=== PATIENT | male | born 1975 | race Asian ===

== ENCOUNTER 2020-10-14 17:04 | Emergency (ER) | payer MEDICARE ==
[~2020-10-14] VITALS: Ht 160 cm; Wt 87.4 kg
[2020-10-14 17:13] VITALS: BP 132/85
--- NOTE | 2020-10-14 17:47 | NUR ---
REMOVABLE PROSTHODONTIST: PT TO ROOM FROM LOBBY
[2020-10-14] MEDS ORDERED: AMOXICILLIN 500 MG CAPSULE ONE (18:17)
[2020-10-14] MEDS ORDERED: OXYcodone/APAP 5/325MG TABLET ONE (18:18)
[2020-10-14] MEDS ORDERED: OXYcodone/APAP 5/325MG TABLET PO ONE (18:30)
[2020-10-14] MEDS ORDERED: AMOXICILLIN 500 MG CAPSULE PO ONE (18:30)
--- NOTE | 2020-10-14 18:37 | NUR ---
Patient given discharge instructions and Rx, they have confirmed that they understand the instructions. Patient ambulatory with steady gait.
== END 2020-10-14 19:14 | disposition home or self-care (01) ==
LOC: ED 18:29
DX: K02.9 Dental caries, unspecified (principal); I10 Essential (primary) hypertension; E11.9 Type 2 diabetes mellitus without complications; M19.90 Unspecified osteoarthritis, unspecified site; E78.00 Pure hypercholesterolemia, unspecified; F17.210 Nicotine dependence, cigarettes, uncomplicated
CPT/HCPCS: 99283; 99406

== ENCOUNTER 2020-10-16 18:36 | Emergency (ER) | payer MEDICARE ==
[~2020-10-16] VITALS: Ht 160 cm; Wt 90.0 kg
[2020-10-16] MEDS ORDERED: IBUPROFEN 600 MG TABLET PO ONE (20:00)
[2020-10-16] MEDS ORDERED: IBUPROFEN 600 MG TABLET ONE (20:08)
[2020-10-16 21:02] VITALS: BP 134/85
== END 2020-10-16 21:04 | disposition home or self-care (01) ==
LOC: ED 20:00
DX: M79.10 Myalgia, unspecified site (principal); Z20.822 Contact with and (suspected) exposure to COVID-19; R50.9 Fever, unspecified; R51.9 Headache, unspecified; E11.9 Type 2 diabetes mellitus without complications
CPT/HCPCS: 87635; 99283

== ENCOUNTER 2020-12-02 17:28 | Emergency (ER) | payer MEDICARE ==
[~2020-12-02] VITALS: Ht 160 cm; Wt 87.5 kg
--- NOTE | 2020-12-02 17:57 | NUR ---
PT AMBULATORY TO ROOM 31 W/ C/O L HAND SWELLING STARTED 3 DAYS AGO. PT STATES HX GOUT AND BELIEVES THIS IS A FLARE UP. NORMALLY IS GIVEN PREDNISONE FOR IT. PT RESTING ON [facility]. NADN. MONITORS APPLIED.
--- NOTE | 2020-12-02 18:55 | NUR ---
As secondary tasking RN, meds given to pt at this time and is only care provided by this RN. Pt awake, alert, in NAD, and off monitor.
[2020-12-02] MEDS ORDERED: INDOMETHACIN 50 MG CAPSULE PO ONE (19:00)
[2020-12-02 19:18] VITALS: BP 165/91
--- NOTE | 2020-12-02 19:18 | NUR ---
PT RESTING ON GURNEY. NADN. CASTRO.
== END 2020-12-02 20:17 | disposition home or self-care (01) ==
LOC: ED 19:57
DX: M13.842 Other specified arthritis, left hand (principal); M79.89 Other specified soft tissue disorders; I10 Essential (primary) hypertension; E11.9 Type 2 diabetes mellitus without complications; E78.00 Pure hypercholesterolemia, unspecified; F17.200 Nicotine dependence, unspecified, uncomplicated
CPT/HCPCS: 99283; J7512

== ENCOUNTER 2020-12-11 12:20 | Emergency (ER) | payer MEDICARE ==
[~2020-12-11] VITALS: Ht 165.1 cm; Wt 88.0 kg
--- NOTE | 2020-12-11 12:20 | NUR ---
TASK RN: MICAELA BISHOPSA W CO SUDDEN ONSET 'STABBING' 05/17 SUBSTERNAL CP. ONSET WHILE ACTIVE, IMPROVED WITH REST AND NITRO TO 10/17. PAIN RADIATES TO L SHOULDER AND IS ASSOCIATED WITH SOB. SIMILAR EPISODE YESTERDAY, LASTING 45 MINUTES PROVOKED BY ACTIVIY AND RESOLVED W REST. HX DC AND DM. REPORTS COMPLIANCE WITH LISINOPRIL, METFORMIN, AND ATORVASTATIN. 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 PAIN NOW 02/14. PT PWD, NAD NOTED. SPEAKING IN FULL SENTENCES AND APPEARS COMFORTABLE. IV ESTABLISHED, LABS DRAWN. EKG COMPLETED UPON ARRIVAL. BP/SPO2/ECG MONITORING IN PLACE. SINUS TACH ON MONITOR. REPORT TO PRIMARY RN SANAZ AND MARYJO
--- NOTE | 2020-12-11 12:53 | NUR ---
RECEVIED REPORT FROM LEROY. PT SITTING UPRIGHT ON TAYLORNayMILLICENT, BS. NAD. NO NEEDS AT THIS TIME. CALL LIGHT WITHIN REACH.
[2020-12-11 12:56] LABS: BASOPHILS % (AUTO) 1 % (0-1); EOSINOPHILS % (AUTO) 1 % (1-7); LYMPHOCYTES % (AUTO) 23 % (22-44); MEAN CORPUSCULAR HEMOGLOBIN 29.1 pg (27.5-34.5); MEAN CORPUSCULAR HGB CONC 33.4 g/dL (33.2-36.2); MEAN PLATELET VOLUME 7.8 fL (7.4-10.4); MONOCYTES % (AUTO) 5 % (2-9); NEUTROPHILS % (AUTO) 69 % (42-75); PLATELET COUNT 382 x10^3/uL (130-400); RED BLOOD COUNT 4.65 x10^6/uL (4.38-5.82); RED CELL DISTRIBUTION WIDTH 14.8 % (9.4-14.8)
[2020-12-11 13:00] LABS: MD NO
[2020-12-11 13:01] LABS: ALANINE AMINOTRANSFERASE 17 U/L (12-78); ALBUMIN 3.5 g/dL (3.4-5.0); ANION GAP 6 mmol/L (5-15); CALCIUM 8.7 mg/dL (8.5-10.1); CHLORIDE 105 mmol/L (98-107); CREATININE 1.21 mg/dL (0.7-1.3)
[2020-12-11 13:05] LABS: ALKALINE PHOSPHATASE 161 U/L (45-117); BILIRUBIN,TOTAL 0.3 mg/dL (0.2-1.0); TOTAL PROTEIN 8.1 g/dL (6.4-8.2); TROPONIN I < 0.015 ng/mL (0.000-0.045)
[2020-12-11] MEDS ORDERED: ATOR-2 PO (13:06)
[2020-12-11] MEDS ORDERED: METF500T17 PO (13:06)
[2020-12-11] MEDS ORDERED: INDO50CA15 PO (13:06)
[2020-12-11] MEDS ORDERED: LISI1TAB39 PO (13:06)
--- NOTE | 2020-12-11 14:31 | NUR ---
PT LAYING ON GURNEY WITH EYES CLOSED, RESPONDS APPROP TO STAFF, NAD, NO NEEDS AT THIS TIME- MEAL TRAY ORDERED PER ERP, FAMILY AT BS, CALL LIGHT WITHIN REACH.
--- NOTE | 2020-12-11 15:03 | NUR ---
MEAL TRAY GIVEN
--- NOTE | 2020-12-11 15:28 | NUR ---
PT SITTING UP EATING, RESPONDS APPROP TO STAFF, NAD, NO NEEDS AT THIS TIME, FAMILY AT BS, CALL LIGHT WITHIN REACH, AWAITING REPEAT TROP.
[2020-12-11 15:38] LABS: TROPONIN I < 0.015 ng/mL (0.000-0.045)
[2020-12-11 16:46] VITALS: BP 133/82
--- NOTE | 2020-12-11 16:48 | NUR ---
Patient given discharge instructions and they have confirmed that they understand the instructions. Patient ambulatory with steady gait.
== END 2020-12-11 16:49 | disposition home or self-care (01) ==
LOC: ED 13:00
DX: R07.2 Precordial pain (principal); R07.89 Other chest pain; I25.2 Old myocardial infarction; E11.9 Type 2 diabetes mellitus without complications; I10 Essential (primary) hypertension; M19.90 Unspecified osteoarthritis, unspecified site; E78.00 Pure hypercholesterolemia, unspecified
CPT/HCPCS: 36415; 71045; 80053; 84484; 85025; 93005; 99285

== ENCOUNTER 2021-01-16 11:36 | Emergency (ER) | payer MEDICARE ==
[~2021-01-16] VITALS: Ht 160 cm; Wt 86.5 kg
[~2021-01-16 11:36] MED LIST: ATOR-2 PO; INDO50CA15 PO; LISI1TAB39 PO; METF500T17 PO
--- NOTE | 2021-01-16 12:27 | NUR ---
PT STATES LT LQ ABD PAIN THAT RADIATES TO LT FLANK. PT IN AGGITATED, ANXIOUS AND RESTLESS IN BED. PT STATES DOES NOT CHECK SUGARS AT HOME. PT PLACED ON MONITORS. ERMD AT BEDSIDE FOR ASSESSMENT. WILL FOLLOW ORDERS.
[2021-01-16] MEDS ORDERED: ONDANSETRON 2MG/ML, 2ML ONE (12:50)
[2021-01-16] MEDS ORDERED: MORPHINE SULFATE 4 MG/ML, 1ML ONE (12:50)
[2021-01-16] MEDS ORDERED: KETOROLAC 30 MG/1 ML ONE (12:50)
[2021-01-16 12:59] LABS: BASOPHILS % (AUTO) 1 % (0-1); EOSINOPHILS % (AUTO) 1 % (1-7); LYMPHOCYTES % (AUTO) 15 % (22-44); MEAN CORPUSCULAR HEMOGLOBIN 29.6 pg (27.5-34.5); MEAN CORPUSCULAR HGB CONC 33.6 g/dL (33.2-36.2); MEAN PLATELET VOLUME 7.8 fL (7.4-10.4); MONOCYTES % (AUTO) 5 % (2-9); NEUTROPHILS % (AUTO) 78 % (42-75); PLATELET COUNT 333 x10^3/uL (130-400); RED BLOOD COUNT 4.43 x10^6/uL (4.38-5.82); RED CELL DISTRIBUTION WIDTH 14.5 % (9.4-14.8)
[2021-01-16] MEDS ORDERED: KETOROLAC 30 MG/1 ML IVPush ONE (13:00)
[2021-01-16] MEDS ORDERED: SODIUM CHLORIDE FLUSH 10ML SYR IVF ONE (13:00)
[2021-01-16] MEDS ORDERED: ONDANSETRON 2MG/ML, 2ML IVPush ONE (13:00)
[2021-01-16] MEDS ORDERED: MORPHINE SULFATE 4 MG/ML, 1ML IVPush PRN (13:00)
[2021-01-16] MEDS ORDERED: SODIUM CHLORIDE 0.9% 1,000ML IV ONE (13:00)
--- NOTE | 2021-01-16 13:01 | NUR ---
PT MEDICATED FOR PAIN PER ORDERS. PT REMAINS ON MONITORS, VSS. PT HAS URINAL AT BEDSIDE. WILL REASSESS.
[2021-01-16 13:06] LABS: ALANINE AMINOTRANSFERASE 16 U/L (12-78); ALBUMIN 3.7 g/dL (3.4-5.0); ANION GAP 7 mmol/L (5-15); CALCIUM 9.1 mg/dL (8.5-10.1); CHLORIDE 109 mmol/L (98-107)
[2021-01-16 13:09] LABS: ALKALINE PHOSPHATASE 142 U/L (45-117); BILIRUBIN,TOTAL 0.2 mg/dL (0.2-1.0); TOTAL PROTEIN 8.3 g/dL (6.4-8.2)
--- NOTE | 2021-01-16 13:20 | NUR ---
BREAK RN: OFF FLOOR TO CT
--- NOTE | 2021-01-16 13:46 | NUR ---
BREAK RN: PT RETURNED FROM CT AND LYING IN POSITION OF COMFORT, RIGHT SIDE, EYES CLOSED. STATES PAIN IMPROVED SINCE MEDICATED FOR SAME. URINE SAMPLE OBTAINED AND SENT TO LAB. AT BEDSIDE
[2021-01-16 13:57] LABS: MICROSCOPIC AUTO
--- NOTE | 2021-01-16 14:58 | NUR ---
PT OK FOR D/C, VERBALIZED UNDERSTANDING. PT HAS STEADY GAIT UPON D/C. STATES HIS PAIN IS "MUCH BETTER." PT HAS ALL OWN BELONGINGS UPON D/C.
[2021-01-16 15:01] VITALS: BP 147/89
[2021-05-26] MEDS ORDERED: INSU100I13 IM (22:41)
[2021-05-29] MEDS ORDERED: PRED20TA PO (12:25)
[2021-05-29] MEDS ORDERED: DICL50TA4 PO (12:25)
[2021-05-29] MEDS ORDERED: COLC0.6C3 PO (12:25)
== END 2021-01-16 15:03 | disposition home or self-care (01) ==
LOC: ED 14:31
DX: R10.32 Left lower quadrant pain (principal); R11.2 Nausea with vomiting, unspecified; I10 Essential (primary) hypertension; E11.9 Type 2 diabetes mellitus without complications; E78.5 Hyperlipidemia, unspecified; I25.2 Old myocardial infarction; M19.90 Unspecified osteoarthritis, unspecified site; F17.200 Nicotine dependence, unspecified, uncomplicated
CPT/HCPCS: 36415; 74176; 80053; 81001; 83690; 85025; 96361; 96374; 96375; 99284; J1885; J2270; J2405; J7030

== ENCOUNTER 2021-04-30 15:12 | Emergency (ER) | payer MEDICAID, MEDICARE ==
[~2021-04-30] VITALS: Ht 160 cm; Wt 86.5 kg
--- NOTE | 2021-04-30 15:21 | NUR ---
PT TO RAD FROM TRIAGE
--- NOTE | 2021-04-30 15:35 | NUR ---
PT TO ROOM FROM XRAY. PT HERE FOR C/O LEFT SHOULDER PAIN X3 DAYS AND NOW RADIATING PAIN TO LEFT UPPER CHEST, NECK, AND HEAD SINCE YESTERDAY. PT SENT FROM . PLACED ON ALL MONITORS, FALL PRECAUTIONS IN PLACE, CALL LIGHT WITHIN REACH.
[2021-04-30] MEDS ORDERED: LISI20TA21 PO (15:41)
--- NOTE | 2021-04-30 15:45 | NUR ---
LAB AT BEDSIDE.
[2021-04-30 15:57] LABS: BASOPHILS % (AUTO) 1 % (0-1); EOSINOPHILS % (AUTO) 1 % (1-7); LYMPHOCYTES % (AUTO) 20 % (22-44); MEAN CORPUSCULAR HEMOGLOBIN 29.8 pg (27.5-34.5); MEAN CORPUSCULAR HGB CONC 33.9 g/dL (33.2-36.2); MEAN PLATELET VOLUME 7.6 fL (7.4-10.4); MONOCYTES % (AUTO) 7 % (2-9); NEUTROPHILS % (AUTO) 71 % (42-75); PLATELET COUNT 345 x10^3/uL (130-400); RED BLOOD COUNT 4.17 x10^6/uL (4.38-5.82); RED CELL DISTRIBUTION WIDTH 14.3 % (9.4-14.8)
[2021-04-30] MEDS ORDERED: SODIUM CHLORIDE FLUSH 10ML SYR IVF ONE (16:00)
[2021-04-30] MEDS ORDERED: DEXAMETHASONE 4 MG/ML, 1ML IVPush ONE (16:00)
[2021-04-30 16:04] LABS: ALBUMIN 3.1 g/dL (3.4-5.0); ANION GAP 6 mmol/L (5-15); CALCIUM 8.6 mg/dL (8.5-10.1); CHLORIDE 103 mmol/L (98-107); CREATININE 1.57 mg/dL (0.7-1.3)
[2021-04-30] MEDS ORDERED: DEXAMETHASONE 4 MG/ML, 1ML ONE (16:05)
[2021-04-30 16:11] LABS: TROPONIN I < 0.015 ng/mL (0.000-0.045)
--- NOTE | 2021-04-30 16:17 | NUR ---
PT TRANSPORTED TO [facility].
[2021-04-30] MEDS ORDERED: SODIUM CHLORIDE 0.9% 1,000ML IVBOLUS ONE (17:30)
[2021-04-30] MEDS ORDERED: MORPHINE SULFATE 4 MG/ML, 1ML IVPush PRN (17:30)
[2021-04-30] MEDS ORDERED: ONDANSETRON 2MG/ML, 2ML IVPush ONE (17:30)
[2021-04-30] MEDS ORDERED: ONDANSETRON 2MG/ML, 2ML ONE (17:33)
[2021-04-30] MEDS ORDERED: MORPHINE SULFATE 4 MG/ML, 1ML ONE (17:33)
--- NOTE | 2021-04-30 17:39 | NUR ---
BREAK RN: PT MED FOR PAIN AND IVF INFUSING ORDERED W/O DIFFICULTY. CALL LIGHT W/I REACH. VSS.
[2021-04-30 18:56] VITALS: BP 143/92
== END 2021-04-30 18:58 | disposition home or self-care (01) ==
LOC: ED 18:21
DX: M10.012 Idiopathic gout, left shoulder (principal); R07.89 Other chest pain; R00.0 Tachycardia, unspecified; I10 Essential (primary) hypertension; E11.9 Type 2 diabetes mellitus without complications; Z88.5 Allergy status to narcotic agent
CPT/HCPCS: 36415; 71046; 73030; 80048; 82040; 84484; 84550; 85025; 85379; 93005; 96374; 96375; 99285; J1100; J2270; J2405; J7030

== ENCOUNTER 2021-05-22 09:28 | Emergency (ER) | payer MEDICARE ==
[~2021-05-22] VITALS: Ht 160 cm; Wt 85.5 kg
[~2021-05-22 09:28] MED LIST changes: +LISI20TA21 PO
[2021-05-22] MEDS ORDERED: ONDANSETRON 2MG/ML, 2ML IVPush ONE (10:30)
[2021-05-22] MEDS ORDERED: SODIUM CHLORIDE FLUSH 10ML SYR IVF ONE (10:30)
[2021-05-22] MEDS ORDERED: MORPHINE SULFATE 4 MG/ML, 1ML ONE ×2 (10:35→11:23)
[2021-05-22] MEDS ORDERED: ONDANSETRON 2MG/ML, 2ML ONE (10:35)
[2021-05-22 10:45] LABS: MICROSCOPIC AUTO
[2021-05-22] MEDS: MORPHINE SULFATE 4 MG/ML, 1ML IVPush PRN ×2 (10:49→11:27)
--- NOTE | 2021-05-22 10:55 | NUR ---
THIS IS A 45 YO M W/ C/O SPONTANEOUS ONSET LT LOW BACK PAIN THAT RADIATES INTO FLANK. PT REPORTS HX OF DM AND CKF. PT REPORTS DID NOT TAKE HOME MEDS TODAY INCLUDING INSULIN. PT RESTING ON GURNEY, INTERMITTENTLY CRYING OUT IN PAIN. PIV STARTED, LABS DRAWN. PT MEDICATED PER EMAR. SIDE RAILS UPX2, FAMILY AT BEDSIDE. TACHYCARDIC, OTHER VS WDL.
[2021-05-22 11:05] LABS: BASOPHILS % (AUTO) 0 % (0-1); EOSINOPHILS % (AUTO) 0 % (1-7); LYMPHOCYTES % (AUTO) 15 % (22-44); MEAN CORPUSCULAR HEMOGLOBIN 29.4 pg (27.5-34.5); MEAN CORPUSCULAR HGB CONC 33.6 g/dL (33.2-36.2); MEAN PLATELET VOLUME 7.8 fL (7.4-10.4); MONOCYTES % (AUTO) 8 % (2-9); NEUTROPHILS % (AUTO) 77 % (42-75); PLATELET COUNT 421 x10^3/uL (130-400); RED BLOOD COUNT 4.29 x10^6/uL (4.38-5.82); RED CELL DISTRIBUTION WIDTH 14.4 % (9.4-14.8)
[2021-05-22 11:09] LABS: ALBUMIN 3.6 g/dL (3.4-5.0); ANION GAP 9 mmol/L (5-15); CHLORIDE 105 mmol/L (98-107); CREATININE 1.34 mg/dL (0.7-1.3)
--- NOTE | 2021-05-22 11:14 | NUR ---
ALL TESTS RESULTED. PT IS UP FOR RECHECK AT THIS TIME.
--- NOTE | 2021-05-22 11:30 | NUR ---
PT CRYING OUT IN PAIN, MEDICATED W/ 2ND DOSE OF MORPHINE. AWAITING ERP RECHECK.
[2021-05-22] MEDS ORDERED: KETOROLAC 30 MG/1 ML ONE (11:39)
--- NOTE | 2021-05-22 11:40 | NUR ---
PT TO XR.
[2021-05-22] MEDS ORDERED: KETOROLAC 30 MG/1 ML IVPush ONE (12:00)
[2021-05-22] MEDS ORDERED: HYDROmorphone 2 MG/ML, 1ML ONE (12:46)
--- NOTE | 2021-05-22 12:48 | NUR ---
report received from sharon rn, pt care transferred at this time. pt nad, chart up for recheck at this time. Patient is resting in bed, appears uncomfortable at this time, ERP aware. Bed in lowest, rails engaged, call light on lap. WCTM.
--- NOTE | 2021-05-22 12:51 | NUR ---
PT MEDICATED PER EMAR. PARTH CASTRO. REPORT TO FAMILIA PATEL.
[2021-05-22 12:58] VITALS: BP 131/88
[2021-05-22] MEDS ORDERED: HYDROmorphone 1 MG/ML, 1ML INJ IV ONE (13:00)
--- NOTE | 2021-05-22 13:12 | NUR ---
Patient/Significant other given discharge instructions and they have confirmed that they understand the instructions. Patient ambulatory with steady gait but opted for wheelchair for dc for comfort. NAD, all questions answered appropriately, denies additional needs at this time. No personal belongings left in room after discharge.
== END 2021-05-22 13:13 | disposition home or self-care (01) ==
LOC: ED 10:47
DX: S39.012A Strain of muscle, fascia and tendon of lower back, initial encounter (principal); I10 Essential (primary) hypertension; E11.9 Type 2 diabetes mellitus without complications; I25.2 Old myocardial infarction; E78.00 Pure hypercholesterolemia, unspecified; M06.9 Rheumatoid arthritis, unspecified; F17.200 Nicotine dependence, unspecified, uncomplicated; X58.XXXA Exposure to other specified factors, initial encounter; Y93.89 Activity, other specified; Y92.89 Other specified places as the place of occurrence of the external cause; Y99.8 Other external cause status
CPT/HCPCS: 36415; 72110; 80048; 81001; 82040; 85025; 93005; 96374; 96375; 96376; 99285; J1170; J1885; J2270; J2405